=== PATIENT | female | born 1935 | race Caucasian/White ===

== ENCOUNTER 2016-11-19 16:14 | Inpatient (IN) | payer MEDICARE, OTHER ==
[2016-11-19] MEDS ORDERED: ARICEPT10 M2 PO (19:20)
[2016-11-19] MEDS ORDERED: DILAUDID2 M1 PO (19:21)
[2016-11-19] MEDS ORDERED: PRAVASTATIN SOD10 M1 PO (19:23)
[2016-11-19] MEDS ORDERED: POTASSIUM CHLO10 ME1 PO (19:23)
[2016-11-19] MEDS ORDERED: NAMENDA10 M1 PO (19:23)
[2016-11-19] MEDS ORDERED: SYNTHROID50 MC1 PO (19:24)
[2016-11-19] MEDS ORDERED: ROCALTROL0.25 MC1 PO (19:24)
[2016-11-19] MEDS ORDERED: TYLENOL EXTRA500 M1 PO (19:25)
[2016-11-19] MEDS ORDERED: TENORMIN25 M1 PO (19:25)
[2016-11-19] MEDS ORDERED: ULORIC40 MG/TAB PO (19:26)
[2016-11-19] MEDS ORDERED: ZESTRIL2.5 M3 PO (19:26)
[2016-11-19] MEDS ORDERED: XALATAN2.5 M1 EACH EYE (19:27)
[2016-11-19] MEDS ORDERED: LIDODERM1 EACH TOP (19:28)
[2016-11-19] MEDS ORDERED: NORMAL SALINE FL2 ML IV (19:29)
[2016-11-19] MEDS ORDERED: REMOVE PATCH TOP (19:29)
[2016-11-19] MEDS ORDERED: COLACE100 M1 PO (19:30)
[2016-11-19] MEDS ORDERED: BENTYL10 M1 PO (19:30)
--- NOTE | 2016-11-19 19:34 | NUR ---
[facility] NOTES: PT. IN BED WITH FAMILY AT HER SIDE. ASKED PT. IF SHE HAD A PEREFERENCE OF SURGEONS HERE [place]. FAMILY FIRMLY REQUESTING THAT I WOULD MAKE A CHOICE FOR THEM "THAT YOU WOULD HAVE YOUR MOTHER GO TO". EDUCATION GIVEN OF I WAS UNABLE TO ADVISE THEM ON WHICH SURGEON TO GO TO, BUT THAT WE HAVE GOOD SURGEONS THAT COME HERE. I WILL CLARIFY WITH O/C PROVIDERS. DAUGHTER THEN EXPLAINS THE PT. HAS SHORT TERM MEMORY LOSS. EDUCATION PROVIDED TO CALL FOR FURTHER NEEDS. PT. STATES VERBAL AGREEMENT. WILL CONTINUE TO MONITOR.
[2016-11-19] MEDS ORDERED: MAALOX MAXIMUM355 M1 PO (19:42)
[2016-11-19] MEDS ORDERED: TYLENOL325 M2 PO (19:42)
[2016-11-19] MEDS ORDERED: DULCOLAX10 MG PR (19:44)
[2016-11-19] MEDS ORDERED: ZOFRAN4 M2 PO (19:44)
[2016-11-19] MEDS ORDERED: ACETAMINOP160 MG/5 M PO (19:44)
[2016-11-19] MEDS ORDERED: PRAVACHOL20 M1 PO (19:49)
[2016-11-19] MEDS ORDERED: LOPERAMIDE2 M2 PO (21:42)
[2016-11-19] MEDS ORDERED: ASPIRIN81 M1 PO (21:43)
[2016-11-19] MEDS ORDERED: VALPROIC ACID250 M3 PO (21:43)
[2016-11-19] MEDS ORDERED: CENTRUM SILVER1 EAC3 PO (22:19)
[2016-11-19] MEDS ORDERED: PROLIA60 MG/1 M1 SC (22:20)
[2016-11-19] MEDS ORDERED: FEBUXOSTAT PO (22:22)
[2016-11-19] MEDS ORDERED: LASIX40 M1 PO (22:22)
[2016-11-19] MEDS ORDERED: MIRTAZAPINE30 M2 PO (22:24)
[2016-11-19] MEDS ORDERED: COUMADIN6 M1 PO (22:25)
[2016-11-19] MEDS ORDERED: OCUVITE SOFTGE1 EACH PO (22:25)
[2016-11-19] MEDS ORDERED: COUMADIN2 M1 PO (22:26)
[2016-11-19] MEDS ORDERED: [UNRECOGNIZED DRUG - OTHER] (22:29)
[2016-11-20 06:48] LABS: BASO % 1.5 % (0-2); BASO ABSOLUTE COUNT 0.1 tho/cmm (0.0-0.2); EOS % 2.4 % (0-7); EOSINOPHIL ABSOLUTE COUNT 0.1 tho/cmm (0.0-0.7); HCT-HEMATOCRIT 35.7 % (34.0-49.0); HGB-HEMOGLOBIN 11.7 gm/dl (12.0-15.5); IMMATURE GRANULOCYTES ABSOLUTE 0.04 tho/cmm (0-0.03); IMMATURE GRANULOCYTES PERCENT 0.9 % (0-0.3); LYMPH % 13.9 % (20-45); LYMPH ABSOLUTE COUNT 0.7 tho/cmm (0.8-4.5); MCHC MEAN CORPUSCULAR HGB CONC 32.8 % (32.0-36.0); MCV (MEAN CELL VOLUME) 91.5 fl (82.0-96.0); MEAN PLATELET VOLUME 9.7 cmc (9.4-12.4); MONO % 11.1 % (0-12); MONOCYTE ABSOLUTE COUNT 0.5 tho/cmm (0.0-1.2); NEUTROPHIL ABSOLUTE COUNT 3.3 tho/cmm (1.6-8.0); NEUTROPHIL-AUTOMATED 3.3 tho/cmm (1.6-8.0); NEUTROPHILS % 70.2 % (40-80); PLATELET COUNT 225 tho/cmm (150-450); RED CELL DISTRIBUTION WIDTH 14.8 % (12.4-16.4); WHITE BLOOD COUNT 4.7 tho/cmm (4.0-10.0)
[2016-11-20 06:58] LABS: ANION GAP 16 mmol/L (0-20); BLOOD UREA NITROGEN 17 mg/dl (6-24); CALCIUM 8.5 mg/dl (8.5-10.5); CARBON DIOXIDE-VENOUS 22 mmol/L (22-32); CHLORIDE 110 mmol/l (96-110); CREATININE 1.46 mg/dl (0.50-1.10); GLUCOSE 82 mg/dL (70-110); POTASSIUM 3.9 mmol/L (3.7-5.1); SODIUM 144 mmol/L (135-145); eGFR VALUE FOR BLACK 38 mL/Min
[2016-11-20 07:11] LABS: INR 2.3 INR (0.9-1.1); PROTHROMBIN TIME 27.5 SECONDS (9.0-13.6)
--- NOTE | 2016-11-20 18:57 | NUR ---
[facility] NOTE: ASSESSMENT DEFERRED, PT. SLEEPING.
[2016-11-21 06:48] LABS: INR 1.6 INR (0.9-1.1); PROTHROMBIN TIME 18.5 SECONDS (9.0-13.6)
[2016-11-21 07:50] LABS: BASO % 1.4 % (0-2); BASO ABSOLUTE COUNT 0.1 tho/cmm (0.0-0.2); EOS % 3.8 % (0-7); EOSINOPHIL ABSOLUTE COUNT 0.2 tho/cmm (0.0-0.7); HCT-HEMATOCRIT 35.5 % (34.0-49.0); HGB-HEMOGLOBIN 11.7 gm/dl (12.0-15.5); IMMATURE GRANULOCYTES ABSOLUTE 0.03 tho/cmm (0-0.03); IMMATURE GRANULOCYTES PERCENT 0.6 % (0-0.3); LYMPH % 18.6 % (20-45); LYMPH ABSOLUTE COUNT 0.9 tho/cmm (0.8-4.5); MCH (MEAN CORPUSCULAR HGB) 30.2 pg (28.0-32.0); MCV (MEAN CELL VOLUME) 91.5 fl (82.0-96.0); MEAN PLATELET VOLUME 9.6 cmc (9.4-12.4); MONOCYTE ABSOLUTE COUNT 0.8 tho/cmm (0.0-1.2); NEUTROPHIL ABSOLUTE COUNT 2.9 tho/cmm (1.6-8.0); NEUTROPHIL-AUTOMATED 2.9 tho/cmm (1.6-8.0); NEUTROPHILS % 59.6 % (40-80); PLATELET COUNT 230 tho/cmm (150-450); RED BLOOD COUNT 3.88 mil/cmm (4.00-5.20); RED CELL DISTRIBUTION WIDTH 15.1 % (12.4-16.4); WHITE BLOOD COUNT 4.9 tho/cmm (4.0-10.0)
[2016-11-22 04:58] LABS: BASO % 1.2 % (0-2); BASO ABSOLUTE COUNT 0.1 tho/cmm (0.0-0.2); EOS % 4.2 % (0-7); EOSINOPHIL ABSOLUTE COUNT 0.2 tho/cmm (0.0-0.7); HCT-HEMATOCRIT 40.7 % (34.0-49.0); HGB-HEMOGLOBIN 13.4 gm/dl (12.0-15.5); IMMATURE GRANULOCYTES ABSOLUTE 0.04 tho/cmm (0-0.03); IMMATURE GRANULOCYTES PERCENT 0.8 % (0-0.3); LYMPH % 20.5 % (20-45); LYMPH ABSOLUTE COUNT 1.1 tho/cmm (0.8-4.5); MCH (MEAN CORPUSCULAR HGB) 30.1 pg (28.0-32.0); MCHC MEAN CORPUSCULAR HGB CONC 32.9 % (32.0-36.0); MCV (MEAN CELL VOLUME) 91.5 fl (82.0-96.0); MEAN PLATELET VOLUME 9.4 cmc (9.4-12.4); MONO % 11.8 % (0-12); MONOCYTE ABSOLUTE COUNT 0.6 tho/cmm (0.0-1.2); NEUTROPHIL ABSOLUTE COUNT 3.2 tho/cmm (1.6-8.0); NEUTROPHIL-AUTOMATED 3.2 tho/cmm (1.6-8.0); NEUTROPHILS % 61.5 % (40-80); PLATELET COUNT 236 tho/cmm (150-450); RED BLOOD COUNT 4.45 mil/cmm (4.00-5.20); RED CELL DISTRIBUTION WIDTH 14.9 % (12.4-16.4); WHITE BLOOD COUNT 5.2 tho/cmm (4.0-10.0)
[2016-11-22 05:18] LABS: INR 1.2 INR (0.9-1.1)
[2016-11-22 05:25] LABS: ANION GAP 16 mmol/L (0-20); BLOOD UREA NITROGEN 16 mg/dl (6-24); CALCIUM 8.8 mg/dl (8.5-10.5); CARBON DIOXIDE-VENOUS 24 mmol/L (22-32); CHLORIDE 110 mmol/l (96-110); CREATININE 1.53 mg/dl (0.50-1.10); GLUCOSE 86 mg/dL (70-110); POTASSIUM 3.6 mmol/L (3.7-5.1); SODIUM 146 mmol/L (135-145); eGFR VALUE FOR BLACK 36 mL/Min
[2016-11-22 05:31] LABS: PROTHROMBIN TIME 14.4 SECONDS (9.0-13.6)
[2016-11-22 16:59] LABS: URINE BILIRUBIN NEGATIVE (NEG); URINE BLOOD LARGE (NEG); URINE GLUCOSE (UA) NEGATIVE (NEG); URINE KETONE MODERATE (NEG); URINE LEUKOCYTE ESTERASE POSITIVE (NEG); URINE NITRITE NEGATIVE (NEG); URINE PROTEIN SMALL (NEG); URINE SPECIFIC GRAVITY 1.015 (1.003-1.030)
[2016-11-22 17:03] LABS: URINE APPEARANCE HAZY; URINE COLOR YELLOW
[2016-11-22 17:18] LABS: URINE BACTERIA 1+; URINE WBC 0-1 /[HPF] (0-5)
[2016-11-23 04:52] LABS: INR 1.3 INR (0.9-1.1); PROTHROMBIN TIME 14.8 SECONDS (9.0-13.6)
[2016-11-23] MEDS ORDERED: COUMADIN5 M2 PO (09:07)
[2016-11-23] MEDS ORDERED: NEURONTIN300 M1 PO (09:09)
[2016-11-23] MEDS ORDERED: LYRICA50 MG/CAP PO (14:42)
== END 2016-11-23 15:40 | disposition home health service (06) | DRG 74 ==
LOC: 5WD 16:14
PROVIDERS: Internal Medicine; Surgery; ADMIT Family Medicine
PROC: 5A09357 Assistance with Respiratory Ventilation, Less than 24 Consecutive Hours, Continuous Positive Airway Pressure (ICD-10-PCS; 2016-11-19)
PROC: 0DBE8ZX Excision of Large Intestine, Via Natural or Artificial Opening Endoscopic, Diagnostic (ICD-10-PCS; principal; 2016-11-22)
PROC: 0DB68ZX Excision of Stomach, Via Natural or Artificial Opening Endoscopic, Diagnostic (ICD-10-PCS; 2016-11-22)
PROC: 0DB98ZX Excision of Duodenum, Via Natural or Artificial Opening Endoscopic, Diagnostic (ICD-10-PCS; 2016-11-22)
DX: B02.29 Other postherpetic nervous system involvement (principal); N18.4 Chronic kidney disease, stage 4 (severe); F03.90 Unspecified dementia, unspecified severity, without behavioral disturbance, psychotic disturbance, mood disturbance, and anxiety; I13.0 Hypertensive heart and chronic kidney disease with heart failure and stage 1 through stage 4 chronic kidney disease, or unspecified chronic kidney disease; I50.32 Chronic diastolic (congestive) heart failure; I27.2 Other secondary pulmonary hypertension; E11.22 Type 2 diabetes mellitus with diabetic chronic kidney disease; N25.81 Secondary hyperparathyroidism of renal origin; Z79.01 Long term (current) use of anticoagulants; Z95.2 Presence of prosthetic heart valve; J44.9 Chronic obstructive pulmonary disease, unspecified; G47.33 Obstructive sleep apnea (adult) (pediatric); Z85.528 Personal history of other malignant neoplasm of kidney; K57.30 Diverticulosis of large intestine without perforation or abscess without bleeding; K29.70 Gastritis, unspecified, without bleeding; K44.9 Diaphragmatic hernia without obstruction or gangrene; W19.XXXA Unspecified fall, initial encounter; K43.9 Ventral hernia without obstruction or gangrene; I71.4 Abdominal aortic aneurysm, without rupture; K52.9 Noninfective gastroenteritis and colitis, unspecified; Z90.49 Acquired absence of other specified parts of digestive tract; R79.89 Other specified abnormal findings of blood chemistry; Z79.82 Long term (current) use of aspirin; Z88.2 Allergy status to sulfonamides; Z88.8 Allergy status to other drugs, medicaments and biological substances; R11.0 Nausea; I48.2 Chronic atrial fibrillation; Z87.891 Personal history of nicotine dependence; E78.5 Hyperlipidemia, unspecified; R20.3 Hyperesthesia
CPT/HCPCS: A9503; J2405